=== PATIENT | male | born 1970 | race Caucasian/White ===

== ENCOUNTER 2019-05-14 09:09 | Emergency (ER) | payer OTHER ==
[~2019-05-14] VITALS: Ht 182.9 cm; Wt 80.0 kg
[~2019-05-14 09:09] MED LIST: ACET325T33 PO
[2019-05-14 09:11] VITALS: BP 119/60; PULSE 81; RESP 18; Ht 182.9 cm; Wt 80.0 kg
--- NOTE | 2019-05-14 10:08 | ERD ---
ER Documentation Chief Complaint Chief Complaint LIRA AFTER OBJECT FEEL ON TOP, NO KO SEEN ANOTHER ER, HAS STITCHES HPI 48-year-old male presenting with a headache and dizziness. Patient is on May versus a pipe hit his head and he has had pain in his head. He had luci placed at the time which have since been removed. He denies any vomiting but feels sleepy. He denies any visual changes. He has not taken medications for symptoms. Denies medical problems. NKDA. Surgical history right femur as a child. Social history denies ROS All systems reviewed and are negative except as per history of present illness. Medications Home Meds Active Scripts Acetaminophen* (Tylenol*) 325 Mg Tablet, 2 TAB PO Q8 PRN for PAIN AND OR ELEVATED TEMP, #20 TAB Prov:GUANACO DURHAM PA-C 05/14/19 PMhx/Soc Medical and Surgical Hx: pt denies Medical Hx History of Surgery: Yes (femoral) Anesthesia Reaction: No Hx Alcohol Use: Yes (former) Hx Substance Use: No Hx Tobacco Use: No Smoking Status: Never smoker FmHx Family History: No diabetes, No coronary disease, No other Physical Exam Vitals Vital Signs Date Temp Pulse Resp B/P (MAP) Pulse Ox O2 O2 Flow FiO2 Time Delivery Rate 05/14/19 97.8 81 18 119/60 99 09:11 (79) Physical Exam GENERAL: The patient is well-appearing, well-nourished, in no acute distress HEENT: Atraumatic. Conjunctivae are pink. Pupils equal, round, and reactive to light. There is no scleral icterus. Tympanic membranes clear bilaterally. Oropharynx clear. CHEST: Clear to auscultation bilaterally. There are no rales, wheezes or rhonchi. HEART: Regular rate and rhythm. No murmurs, clicks, rubs or gallops. NEUROLOGIC: Alert and oriented. Cranial nerves II through XII intact. Motor strength in all 4 extremities with 5 out of 5 strength. Sensation grossly intact. Normal speech and gait. SKIN: There is no apparent rash or petechiae. The skin is warm and dry. Procedures/MDM DIAGNOSTIC IMAGING REPORT Patient: ALEJO BOWDEN : 1970 Age: 48 Sex: M MR #: [id number] DOS: 05/14/19 0923 Ordering MD: CAMILO DURHAM PA-C Location: [facility] Room/Bed: PROCEDURE: CT Brain without contrast. CLINICAL INDICATION: Headache TECHNIQUE: A CT of the brain was performed on a multidetector CT scanner utilizing axial imaging from the skull base through the vertex without IV contrast. Multiplanar reformatted images were made. Images were reviewed on a PACS workstation. The CTDIvol is 38 mGy and the DLP is 634 mGycm. DICOM images are available. One or more of the following dose reduction techniques were utilized: 1.) Automated exposure control 2.) Adjustment of the mA +/- kV according to patient's size 3.) Use of iterative reconstruction technique. COMPARISON: None FINDINGS: There is no intracranial hemorrhage, mass effect, or midline shift. No extra- axial fluid collection is seen. There is mild diffuse cerebral volume loss with sulcal and ventricular dilatation.. The density of the brain is normal, and the barros white matter differentiation appears well-preserved. The visualized paranasal sinuses and osseous structures are grossly unremarkable. IMPRESSION: Mild atrophy. No intracranial hemorrhage, mass or evidence of acute transcortical infarct. MDM: 48-year-old male presenting with head injury. Patient has been seen by other providers for this and had luci placed however patient is continued dizziness and fatigue after his head injury. Patient CT scan is within normal limits and neuro exam is within normal limits. Vitals are stable. I have low suspicion for intracranial hemorrhage or neuro deficit. I do not feel further blood work or imaging is indicated. Patient is discharged with supportive medications and told to follow-up with primary care. All questions answered at discharge Departure Diagnosis: Primary Impression: Headache Condition: Stable Patient Instructions: Self-Care for Headaches Referrals: COMMUNITY CLINICS YOU HAVE RECEIVED A MEDICAL SCREENING EXAM AND THE RESULTS INDICATE THAT YOU DO NOT HAVE A CONDITION THAT REQUIRES URGENT TREATMENT IN THE EMERGENCY DEPARTMENT. FURTHER EVALUATION AND TREATMENT OF YOUR CONDITION CAN WAIT UNTIL YOU ARE SEEN IN YOUR DOCTORS OFFICE WITHIN THE NEXT 1-2 DAYS. IT IS YOUR RESPONSIBILITY TO MAKE AN APPOINTMENT FOR FOLOW-UP CARE. IF YOU HAVE A PRIMARY DOCTOR --you should call your primary doctor and schedule an appointment IF YOU DO NOT HAVE A PRIMARY DOCTOR YOU CAN CALL OUR PHYSICIAN REFERRAL HOTLINE AT IF YOU CAN NOT AFFORD TO SEE A PHYSICIAN YOU CAN CHOSE FROM THE FOLLOWING COMMUNITY CLINICS [facility] [id number] [facility] [address] [facility] [address] [facility] [address] [facility]. [facility] [address] [facility]. [facility] [address] Additional Instructions: FOLLOW UP WITH YOUR PRIMARY CARE PHYSICIAN TOMORROW.Return to this facility if you are not improving as expected. GUANACO DURHAM PA-C May 14, 2019 10:08
== END 2019-05-14 10:07 | disposition home or self-care (01) ==
LOC: FTE 09:09
DX: R51 Headache (principal)
CPT/HCPCS: 70450

== ENCOUNTER 2019-06-20 17:59 | Emergency (ER) | payer SELFPAY ==
[~2019-06-20] VITALS: Ht 188 cm; Wt 87.1 kg
[~2019-06-20 17:59] MED LIST changes: +ACET500C5 PO; +BEN25 PO; +ONDA4TAB14 PO; +TRAM50TA2 PO
[2019-06-20 18:45] VITALS: BP 119/88; PULSE 79; RESP 16; Ht 188 cm; Wt 87.1 kg
== END 2019-06-20 20:21 | disposition home or self-care (01) ==
LOC: FTE 17:59
DX: R51 Headache (principal); R11.0 Nausea
CPT/HCPCS: 99283